=== PATIENT | female | born 1960 | race Two or more races ===

== ENCOUNTER 2021-11-14 11:20 | Emergency (ER) | payer OTHER ==
[~2021-11-14] VITALS: Ht 162.6 cm; Wt 63.5 kg
[2021-11-14] MEDS ORDERED: LEVOXYL50 MCG PO (11:46)
[2021-11-14] MEDS ORDERED: ESTR0.624 PO (11:46)
[2021-11-14] MEDS ORDERED: CRESTOR20 MG PO (11:46)
== END 2021-11-14 20:49 | disposition home or self-care (01) ==
LOC: ER 11:20
DX: K57.32 Diverticulitis of large intestine without perforation or abscess without bleeding (principal); Z91.041 Radiographic dye allergy status